=== PATIENT | male | born 1960 | race Caucasian/White ===

== ENCOUNTER 2017-04-28 16:26 | Emergency (ER) | payer BC, OTHER ==
[~2017-04-28] VITALS: Ht 185.4 cm; Wt 88.0 kg
[2017-04-28] MEDS ORDERED: ZYRTEC10 M5 PO (16:48)
[2017-04-28] MEDS ORDERED: FLONASE 0.05%50 MCG NASAL (16:48)
[2017-04-28] MEDS ORDERED: IBUPROFEN 600600 M1 PO (18:20)
[2017-04-28] MEDS ORDERED: NORCO 5-325 TA1 EACH PO (18:20)
[2017-04-28 18:35] VITALS: BP 116/72
== END 2017-04-28 18:45 | disposition home or self-care (01) ==
LOC: ER 16:26
DX: S16.1XXA Strain of muscle, fascia and tendon at neck level, initial encounter (principal); S40.019A Contusion of unspecified shoulder, initial encounter; F10.99 Alcohol use, unspecified with unspecified alcohol-induced disorder; V89.2XXA Person injured in unspecified motor-vehicle accident, traffic, initial encounter; Y93.I9 Activity, other involving external motion; Y92.89 Other specified places as the place of occurrence of the external cause; Y99.8 Other external cause status

== ENCOUNTER → 2021-06-13 | Outpatient (CLI) | payer OTHER ==
[~2021-06-13] MED LIST: FLONASE 0.05%50 MCG NASAL; IBUPROFEN 600600 M1 PO; NORCO 5-325 TA1 EACH PO; ZYRTEC10 M5 PO
== END ==
LOC: CAT 08:02
DX: Z13.6 Encounter for screening for cardiovascular disorders (principal); I25.10 Atherosclerotic heart disease of native coronary artery without angina pectoris; E78.00 Pure hypercholesterolemia, unspecified